=== PATIENT | female | born 1965 | race Caucasian/White ===

== ENCOUNTER → 2016-05-29 | Outpatient (CLI) | payer BC ==
--- NOTE | 2016-05-30 01:27 | MR ---
EXAMINATION TYPE: MR foot LT wo/w con DATE OF EXAM: 05/29/2016 8:44 PM COMPARISON: NONE HISTORY: Ganglion cyst Peroneal Tendonitis CONTRAST: Standard multiplanar, multisequence MRI departmental protocol utilizing 12 mL intravenous MultiHance gadolinium contrast. FINDINGS: There is subcutaneous edema over the lateral malleolus as well as lateral to the calcaneus. There is a mild ankle joint effusion. Contrast images show soft tissue enhancement on the lateral as pect of the hindfoot. I see no fracture line. Joint spaces are normal. Ankle mortise is anatomic. I d o not see any significant fluid around the peroneal tendons. Peroneal tendons appear intact. The medi al flexor tendons of the ankle appear intact. Achilles tendon appears normal. Plantar fascia appears normal. IMPRESSION: There is a small ankle joint effusion with fluid seen posterior to the dome of the talus. Subcutaneou s edema over the lateral hindfoot. I do not see a ganglion cyst. No tendon retraction seen. I do not see any significant fluid around the peroneal tendons to suggest tendinitis.
== END | disposition home or self-care (01) ==
LOC: RADMRIMAIN 19:14
PROVIDERS: ATTEND Podiatrist Foot & Ankle Surgery
DX: M25.472 Effusion, left ankle (principal)
CPT/HCPCS: 73720; A9577

== ENCOUNTER 2017-04-27 15:29 | Emergency (ER) | payer BC ==
[2017-04-27] MEDS ORDERED: MORPHINE SULFATE 5 MG/ML SYRINGE IV ONE (16:47)
[2017-04-27] MEDS ORDERED: SODIUM CHLORIDE 0.9% 1,000 ML IV ONE (16:47)
[2017-04-27] MEDS ORDERED: KETOROLAC 30 MG/ML 1 ML VIAL IVP STA (16:47)
[2017-04-27] MEDS ORDERED: ONDANSETRON 4 MG/2 ML VIAL IVP STA (16:49)
--- NOTE | 2017-04-27 16:51 | ED ---
Back Pain HPI - General Chief Complaint: Back Pain/Injury Stated Complaint: Fall Time Seen by Provider: 04/27/17 16:34 Source: patient Limitations: no limitations - History of Present Illness Initial Comments: Patient is a 51-year-old female who presents with a chief complaint of right- sided back and flank pain. The patient states that she fell down wooden stairs 1 week ago and at that time started experiencing pain in her back. She tried to use Motrin, Tylenol, and Craig at that time to alleviate the pain however over the week her pain has not gotten better. The patient states that her pain is exacerbated by twisting, and moving. Alleviating factors are rest. The patient describes her pain as "inflammation pain". - Related Data Previous Rx's Medication Instructions Recorded HYDROcodone/APAP 5-325MG [Craig 1 tab PO Q6HR PRN #20 tab 04/27/17 5-325] Ibuprofen [Motrin] 800 mg PO Q6HR PRN #20 tab 04/27/17 Methocarbamol [Robaxin-750] 750 mg PO TID #20 tablet 04/27/17 Sennosides/Docusate Sodium [Colace 1 each PO DAILY #20 tablet 04/27/17 2-in-1 Tablet] Allergies Allergy/AdvReac Type Severity Reaction Status Date / Time codeine AdvReac Nausea Verified 04/27/17 16:51 Review of Systems ROS Statement: Those systems with pertinent positive or pertinent negative responses have been documented in the HPI. ROS Other: All systems not noted in ROS Statement are negative. Musculoskeletal: Reports: back pain Past Medical History Past Medical History: No Reported History History of Any Multi-Drug Resistant Organisms: None Reported Past Surgical History: Hysterectomy Past Psychological History: No Psychological Hx Reported Smoking Status: Current every day smoker Past Alcohol Use History: Occasional Past Drug Use History: None Reported General Exam Limitations: no limitations General appearance: alert, in no apparent distress Head exam: Present: atraumatic, normocephalic Eye exam: Present: normal appearance ENT exam: Present: mucous membranes moist Neck exam: Absent: tenderness Respiratory exam: Present: normal lung sounds bilaterally Cardiovascular Exam: Present: regular rate, normal rhythm GI/Abdominal exam: Present: soft. Absent: distended, tenderness Back exam: Present: tenderness (Patient is exquisitely tender to palpation on the right flank just to the right of the spine), CVA tenderness (R) Neurological exam: Present: alert, oriented X3, CN II-XII intact, normal gait Psychiatric exam: Present: normal affect, normal mood Skin exam: Present: warm, dry, intact Course Vital Signs 04/27/17 15:44 Temperature 98.5 F Pulse Rate 74 Respiratory 18 Rate Blood Pressure 145/70 O2 Sat by Pulse 98 Oximetry Medical Decision Making - Medical Decision Making The results of the chief complaint of back pain for one week after a fall downstairs. At this time, we will send basic blood work, and get rib x-rays. If at the end of the workup, there is no answer for why the patient is having pain, we will send the patient for a CAT scan. 6:28 PM Lab evaluation of this patient is unremarkable. There is no evidence of infection, renal impairment, or electrolyte disturbance. Urinalysis does not show any evidence of infection or hematuria that would suggest renal injury. X- ray of the ribs and chest do not show any acute displaced fractures. There is no intrathoracic acute process. I discussed the benign nature of the results with the patient. At this time commissure decision making was used to decide to forego further imaging. I discussed supportive management with the patient and her . At this time, they are agreeable. I will prescribe Robaxin, Craig, Motrin, and a stool softener. Patient was instructed to follow-up with her primary care doctor in 2-3 days. She was further instructed to return to the emergency department if her symptoms worsen or change in any way. - Lab Data Result diagrams: 04/27/17 16:55 04/27/17 16:55 Lab Results 04/27/17 04/27/17 04/27/17 Range/Units 16:55 16:55 16:55 WBC 6.7 (3.8-10.6) k/uL RBC 4.41 (3.80-5.40) m/uL Hgb 13.7 (11.4-16.0) gm/dL Hct 42.3 (34.0-46.0) % MCV 96.0 (80.0-100.0) fL MCH 31.1 (25.0-35.0) pg MCHC 32.4 (31.0-37.0) g/dL RDW 13.6 (11.5-15.5) % Plt Count 231 (150-450) k/uL Neutrophils % (Manual) 48 % Lymphocytes % (Manual) 41 % Monocytes % (Manual) 10 % Eosinophils % (Manual) 1 % Neutrophils # (Manual) 3.22 (1.3-7.7) k/uL Lymphocytes # (Manual) 2.75 (1.0-4.8) k/uL Monocytes # (Manual) 0.67 (0-1.0) k/uL Eosinophils # (Manual) 0.07 (0-0.7) k/uL Nucleated RBCs 0 (0-0) /100 WBC Manual Slide Review Performed RBC Morphology Normal Sodium 142 (137-145) mmol/L Potassium 4.4 (3.5-5.1) mmol/L Chloride 104 (98-107) mmol/L Carbon Dioxide 28 (22-30) mmol/L Anion Gap 10 mmol/L BUN 13 (7-17) mg/dL Creatinine 0.60 (0.52-1.04) mg/dL Est GFR (MDRD) Af Amer >60 (>60 ml/min/1.73 sqM) Est GFR (MDRD) Non-Af >60 (>60 ml/min/1.73 sqM) Glucose 85 (74-99) mg/dL Calcium 9.9 (8.4-10.2) mg/dL Total Bilirubin 0.5 (0.2-1.3) mg/dL AST 31 (14-36) U/L ALT 32 (9-52) U/L Alkaline Phosphatase 81 (38-126) U/L Total Protein 7.6 (6.3-8.2) g/dL Albumin 4.7 (3.5-5.0) g/dL Lipase 43 (23-300) U/L Urine Color Colorless Urine Appearance Clear (Clear) Urine pH 5.5 (5.0-8.0) Ur Specific [place] 1.003 (1.001-1.035) Urine Protein Negative (Negative) Urine Glucose (UA) Negative (Negative) Urine Ketones 1+ H (Negative) Urine Blood Negative (Negative) Urine Nitrite Negative (Negative) Urine Bilirubin Negative (Negative) Urine Urobilinogen <2.0 (<2.0) mg/dL Ur Leukocyte Esterase Negative (Negative) Disposition Clinical Impression: Mechanical back pain, Thoracic back pain Disposition: HOME SELF-CARE Condition: Good Instructions: Back Pain (ED) Prescriptions: HYDROcodone/APAP 5-325MG [Craig 5-325] 1 tab PO Q6HR PRN #20 tab PRN Reason: Severe Pain Ibuprofen [Motrin] 800 mg PO Q6HR PRN #20 tab PRN Reason: pain Methocarbamol [Robaxin-750] 750 mg PO TID #20 tablet Sennosides/Docusate Sodium [Colace 2-in-1 Tablet] 1 each PO DAILY #20 tablet Referrals: None,Stated [Primary Care Provider] - 1-2 days
[2017-04-27 17:04] LABS: Appearance,Urine Clear (Clear); Bilirubin,Urine Negative (Negative); Blood,Urine Negative (Negative); Color,Urine Colorless; Glucose,Urine (UA) Negative (Negative); HCT 42.3 % (34.0-46.0); HGB 13.7 gm/dL (11.4-16.0); Ketones,Urine 1+ (Negative); Leukocyte Esterase,Urine Negative (Negative); MCH 31.1 pg (25.0-35.0); MCHC 32.4 g/dL (31.0-37.0); Nitrite,Urine Negative (Negative); PH, Urine 5.5 (5.0-8.0); Platelet Count 231 k/uL (150-450); Protein,Urine Negative (Negative); RBC 4.41 m/uL (3.80-5.40); RDW 13.6 % (11.5-15.5); Specific Gravity,Urine 1.003 (1.001-1.035); Urobilinogen,Urine <2.0 mg/dL (<2.0); WBC 6.7 k/uL (3.8-10.6)
[2017-04-27 17:17] LABS: ALT 32 U/L (9-52); AST 31 U/L (14-36); Albumin 4.7 g/dL (3.5-5.0); Alkaline Phosphatase 81 U/L (38-126); Anion Gap 10 mmol/L; Blood Urea Nitrogen 13 mg/dL (7-17); Calcium 9.9 mg/dL (8.4-10.2); Carbon Dioxide 28 mmol/L (22-30); Chloride 104 mmol/L (98-107); Glucose 85 mg/dL (74-99); Lipase 43 U/L (23-300); Potassium 4.4 mmol/L (3.5-5.1); Sodium 142 mmol/L (137-145); Total Bilirubin 0.5 mg/dL (0.2-1.3); Total Protein 7.6 g/dL (6.3-8.2)
[2017-04-27 17:26] LABS: Eosinophils # (M) 0.07 k/uL (0-0.7); Lymphocytes # (M) 2.75 k/uL (1.0-4.8); Monocytes # (M) 0.67 k/uL (0-1.0); Neutrophils # (M) 3.22 k/uL (1.3-7.7); Neutrophils % (M) 48 %; Nucleated Red Blood Cells 0 /100 WBC (0-0); Total Cells Counted 100
--- NOTE | 2017-04-27 18:08 | XR ---
EXAMINATION TYPE: XR ribs bilat w pa chest xray DATE OF EXAM: 04/27/2017 CLINICAL HISTORY: Chest and bilateral rib pain after fall injury. TECHNIQUE: Single frontal view of the chest is obtained. A frontal and oblique images of the bilatera l ribs are acquired. COMPARISON: None FINDINGS: There is no focal air space opacity, pleural effusion, or pneumothorax seen. The cardiac silhouette size is within normal limits. The osseous structures are intact. Dedicated images of the bilateral ribs show no acute displaced fracture. Overlying soft tissue is unr emarkable. IMPRESSION: 1. No acute cardiopulmonary process. 2. No acute displaced rib fractures are evident bilaterally
[2017-04-27 18:33] VITALS: BP 135/62; PULSE 62; RESP 17; TEMP 98.7
== END 2017-04-27 18:43 | disposition home or self-care (01) ==
LOC: EC 15:29
DX: M54.6 Pain in thoracic spine (principal); R10.9 Unspecified abdominal pain; F17.200 Nicotine dependence, unspecified, uncomplicated; Z88.5 Allergy status to narcotic agent; W10.9XXA Fall (on) (from) unspecified stairs and steps, initial encounter
CPT/HCPCS: 36415; 80053; 83690; 85025; 81003; 71111; 99283; 96374; 96375 ×2; 96361; J2405; J1885; J2274

== ENCOUNTER → 2022-05-09 | Outpatient (CLI) | payer BC ==
--- NOTE | 2022-05-10 09:31 | MM ---
Reason for Exam: Screening (asymptomatic). Baseline mammogram. Patient History: Menarche at age 10. First Full-Term at age 18. Left ovary removed at age 31. Right ovary removed at age 31. Hysterectomy at age 30. Postmenopausal. Risk Values: Shalini 5 year model risk: 1.2%. NCI Lifetime model risk: 6.9%. Prior Study Comparison: Patient's first Mammogram. No prior studies available for comparison. Tissue Density: The breast tissue is heterogeneously dense. This may lower the sensitivity of mammography. Findings: Analyzed By CAD. There is no suspicious group of microcalcifications or new suspicious mass in either breast. Overall Assessment: Negative, BI-RAD 1 Management: Screening Mammogram of both breasts in 1 year. A clinical breast exam by your physician is recommended on an annual basis and results should be correlated with mammographic findings. [facility] will attempt to contact patient to return for supplemental views and ultrasound if indicated. Electronically signed and approved by: Jorge Jefferson DO
== END | disposition home or self-care (01) ==
LOC: RADMAMWWP 10:38
PROVIDERS: ATTEND Family Medicine
DX: Z12.31 Encounter for screening mammogram for malignant neoplasm of breast (principal); Z78.0 Asymptomatic menopausal state
CPT/HCPCS: 77063; 77067

== ENCOUNTER → 2023-02-28 | Outpatient (CLI) | payer BC ==
[2023-02-28 10:41] VITALS: RESP 16
[2023-02-28 11:34] VITALS: BP 118/78; PULSE 75; TEMP 98.1
--- NOTE | 2023-02-28 15:03 | P.PAINPG ---
PQRS Measure Charge Sheet Comment: HISTORY OF PRESENT ILLNESS: A 57 yr old female as a referral from Dr Avalos presents today w severe and chronic lumbosacral pain x 2-3 yrs secondary to DDD, spondylosis and facet arthropathy without myelopathy for evaluation. Pain stated when pt fell down a flight of stairs. Pt states pain level is provoked at 6/10 in intensity, constant, localized in the lower lumbar spine where it meets the tailbone, predominantly axial, sharp/ stabbing in character without shooting pain. Pain is provoked by sitting for periods of 30 min or more. Pain is alleviated by heat, ice, PT x 6 wks in Oct-Nov 2022, laying flat surface w hips rotated, reclining and rest. Oswestry axial pain score at 27. PMH: OA PSH: Hysterectomy SH: Daily tobacco use, Occasional ETOH use, No illicit drug use FH: Non contributory All: See list Meds: See list REVIEW OF ORGAN SYSTEMS: CONSTITUTIONAL: No fevers or chills. No recent weight loss. NEUROLOGICAL: + numbness and tingling along the distal extremities. No seizure disorders or headaches. MUSCULOSKELETAL: + pain PSYCHIATRIC: Denies current depression or suicidal thoughts. Physical Examinations : Constitutional : Cooperative , not in acute distress . Neurologic : Cranial nerve II to XII intact. No focal neurological deficits. Psychiatric : alert & oriented x 3. Matching mood & appropriate affect. Judgment & insight intact. Musculoskeletal : Cervical Spine Motor strength in the deltoid and biceps: Normal right side. Normal Left side Motor strength biceps and the wrist extensors: Normal right side . Normal left side Motor strength in the triceps muscle: Normal right side. Normal left side Deep tendon reflexes: Normal at the biceps. Normal at Brachioradialis. Normal at triceps Vertebral body tenderness to deep palpation over Cervical facet loading test: positive bilaterally Spurling test: positive bilaterally Neck distraction test: positive bilaterally Gerald sign: positive bilaterally Lumbar spine Motor strength lower extremities ,thigh and legs 5/5 Right side , 5/5 Left side Deep tendon reflexes : Normal Knee J erk. Normal Ankle Jerk Vertebral body tenderness over Hoyos Test positive Lumbar facet Loading Test: positive Right / positive Left Range of motion of the lumbar spine Flexion 30 degrees, extension 10 degrees Straight Leg Raise test: Left/ Right positive at degree Bety test: positive right / positive left. Severe tenderness over the Sacroiliac joint on the Right / Left sides Gaenslen test: positive bilaterally Seated flexion test: positive bilaterally. Sacral spine : Severe tenderness over the Sacroiliac joint: right side / left side Range of motion: Flexion of the lumbar spine <60 degrees Range of motion: Extension of the lumbar spine <20 degrees Gaenslen's Test positive L >R Bety test: positive right side < left side Thigh Thrust Test Sacral Thrust Test positive L & R Imaging: MRI noncontrast of the lumbar spine from 07/13/22 reviewed Assessment/ Plan : Lumbar DDD, Sacroiliitis Recommendation of BL SI Injections. May need a series of injections for optimal pain relief. Risks, benefits of procedure discussed and patient verbalized understanding. Admits to anti- coagulant use or medical history of diabetes. Protocol for discontinuation/ continuation of medications gemma procedure disc ussed. Minimal anesthesia provided, if clinically indicated, consisting of Versed and Fentanyl. All questions answered. I have spent greater than 30 minutes on patient care today. Dr Cid was avai lable by phone for the evaluation of this patient. The time was used to review the medical records including relevant urine studies and Prescription history (MAPs), review of the available imaging, evaluation and examination of the patient, coordination of care with the medical staff and if applicable referring physicians, as well as creation of the medical record - Pain Location None Non-Pharmacological Interventions: Exercise, Heat, Ice, Position/Reposition, Stretching Pharmacological Interventions: Block, Epidural PQRS Narrative: Smoking Status Current every day smoker Home Medications: Ambulatory Orders HYDROcodone/APAP 5-325MG [[place] 5-325] 1 tab PO Q6HR PRN #20 tab 04/27/17 Ibuprofen [Motrin] 800 mg PO Q6HR PRN #20 tab 04/27/17 Sennosides/Docusate Sodium [Colace 2-in-1 Tablet] 1 each PO DAILY #20 tablet 04/27/17 methocarbamoL [Robaxin-750] 750 mg PO TID #20 tablet 04/27/17 Controlled Substance Measures - Controlled Substance Measures Is patient prescribed a controlled substance at discharge?: No
== END ==
LOC: PNWHC3 09:25
PROVIDERS: ATTEND Specialist
DX: M51.36 Other intervertebral disc degeneration, lumbar region (principal); M46.1 Sacroiliitis, not elsewhere classified; M19.90 Unspecified osteoarthritis, unspecified site; F17.200 Nicotine dependence, unspecified, uncomplicated; Z88.5 Allergy status to narcotic agent
CPT/HCPCS: 99211

== ENCOUNTER 2023-03-19 07:13 | Day surgery (SDC) | payer BC ==
[2023-03-12 14:45] VITALS: BMI 20.7
[~2023-03-19 07:13] MED LIST: LACTATED RINGERS 1,000 ML IV SCH
[2023-03-19 08:00] VITALS: TEMP 97.8
[2023-03-19] MEDS ORDERED: ROPIVACAINE 5MG/ML 20ML VIAL ONE (08:56)
[2023-03-19] MEDS ORDERED: methylPREDNISolone ACETATE 40 MG/ML 1 ML VIAL ONE (08:56)
--- NOTE | 2023-03-19 09:21 | P.PCN ---
Description of Procedure: Preprocedure diagnosis. Sacroiliac joint arthropathy. Postprocedure diagnosis. As above. Procedure done. Bilateral sacroiliac joint injection with local anesthetics and steroid under fluoroscopic guidance. Anesthesia. Local anesthetic infiltration. Blood loss. Minimal. Indication. Discussed the procedure, alternatives, complications which may include infection,bleeding, nerve damage, aggravation of pain which could be permanent. Patient understands and questions were answered. Procedure note. After getting consent patient in OR in prone position. Back prepped with chlorhexidine and draped in sterile manner. After injecting 10 mL of 1% lidocaine subcutaneously, a 22-gauge spinal needle was introduced under tunnel vision of the fluoroscope in the lower and posterior one third of right sacroiliac joint. After needle position confirmation by AP and crosstable lateral view, . After repeat negative aspiration, 2 mL solution was injected which consists off one milliliter of 0.5% Ropivacaine mixed with 1 mL of 40 mg Depo-Medrol. In exactly same way left sacroiliac joint was injected with same amount of solution. After the procedure needles were taken out. Bandage applied. Disposition. Patient tolerated the procedure well. No complication. Patient was discharged home in stable condition.
[2023-03-19 09:33] VITALS: RESP 18
--- NOTE | 2023-03-19 09:46 | FL ---
Intraoperative/procedural fluoroscopic services were provided. Total fluoroscopy time is 30 seconds w ith a total of 5 submitted images to PACS. Please see the operative/procedural note for further detai ls. DAP: [id number] mGym2
[2023-03-19 10:03] VITALS: BP 139/76; PULSE 55
== END 2023-03-19 09:56 | disposition home or self-care (01) ==
LOC: ORPAIN 07:13
PROVIDERS: ATTEND Pain Medicine Interventional Pain Medicine
DX: M46.1 Sacroiliitis, not elsewhere classified (principal)
CPT/HCPCS: 27096; J1030; J2795

== ENCOUNTER → 2023-04-10 | Outpatient (CLI) | payer BC ==
[2023-04-10 10:18] VITALS: BP 124/87; PULSE 84; RESP 16; TEMP 98.3
--- NOTE | 2023-04-10 14:09 | P.PAINPG ---
PQRS Measure Charge Sheet Comment: HISTORY OF PRESENT ILLNESS: A 57 yr old female presents today w severe and chronic lumbosacral pain x 2-3 yrs secondary to DDD, spondylosis and facet arthropathy without myelopathy for evaluation s/p BL SI Injections #1. Pt states she experienced 50 % pain relief x 3 wks s/p procedure. Pt states pain level is provoked at 7/10 in intensity, constant, localized in the lower lumbar spine where it meets the tailbone, predominantly axial, stabbing in character w occasional shooting pain to buttocks and down back of thighs. Pain is provoked by sitting for periods of 30 min or more. Pain is alleviated by heat, ice, PT x 6 wks in Oct- Nov 2022, laying flat surface w hips rotated, reclining and rest. Oswestry axial pain score at 27. Interventional procedures include BL SI Injection x1 Medications include REVIEW OF ORGAN SYSTEMS: CONSTITUTIONAL: No fevers or chills. No recent weight loss. NEUROLOGICAL: + numbness and tingling along the distal extremities. No seizure disorders or headaches. MUSCULOSKELETAL: + pain PSYCHIATRIC: Denies current depression or suicidal thoughts. Physical Examinations : Constitutional : Cooperative , not in acute distress . Neurologic : Cranial nerve II to XII intact. No focal neurological deficits. Psychiatric : alert & oriented x 3. Matching mood & appropriate affect. Judgment & insight intact. Musculoskeletal : Cervical Spine Motor strength in the deltoid and biceps: Normal right side. Normal Left side Motor strength biceps and the wrist extensors: Normal right side . Normal left side Motor strength in the triceps muscle: Normal right side. Normal left side Deep tendon reflexes: Normal at the biceps. Normal at Brachioradialis. Normal at triceps Vertebral body tenderness to deep palpation over Cervical facet loading test: positive bilaterally Spurling test: positive bilaterally Neck distraction test: positive bilaterally Gerald sign: positive bilaterally Lumbar spine Motor strength lower extremities ,thigh and legs 5/5 Right side , 5/5 Left side Deep tendon reflexes : Normal Knee Jerk. Normal Ankle Jerk Vertebral body tenderness over L5 Hoyos Test positive Lumbar facet Loading Test: positive Right / positive Left Range of motion of the lumbar spine Flexion 30 degrees, extension 10 degrees Straight Leg Raise test: Left/ Right positive at 35 degrees Bety test: positive right / positive left. Severe tenderness over the Sacroiliac joint on the Right / Left sides Gaenslen test: positive bilaterally Seated flexion test: positive bilaterally. Sacral spine : Severe tenderness over the Sacroiliac joint: right side / left side Range of motion: Flexion of the lumbar spine <60 degrees Range of motion: Extension of the lumbar spine <20 degrees Gaenslen's Test positive L >R Bety test: positive right side < left side Thigh Thrust Test Sacral Thrust Test positive L & R Imaging: MRI noncontrast of the lumbar spine from 07/13/22 reviewed Assessment/ Plan : Lumbar DDD, Sacroiliitis Recommendation of BL TFESI L5-S1 #1. May need a series of injections for optimal pain relief. Risks, benefits of procedure discussed and patient verbalized understanding. Admits to anti- coagulant use or medical history of diabetes. Protocol for discontinuation/ continuation of medications gemma procedure discussed. Minimal anesthesia provided, if clinically indicated, consisting of Versed and Fentanyl. All questions answered. I have spent greater than 30 minutes on patient care today. Dr Cid was available by phone for the evaluation of this patient. The time was used to review the medical records including relevant urine studies and Prescription history (MAPs), review of the available imaging, evaluation and examination of the patient, coordination of care with the medical staff and if applicable referring physicians, as well as creation of the medical record PQRS Narrative: Smoking Status Current every day smoker Home Medications: Ambulatory Orders Calcium Carbonate [Calcium] 1,200 mg PO DAILY 03/12/23 Ibuprofen [Motrin Ib] 400 mg PO DIRECTED PRN 03/12/23 Valium (Unknown Dose) 1 dose PO DIRECTED PRN 03/12/23 Vitamin K-2 (?) 1 dose PO DAILY 03/12/23 Lidocaine 4% Patch 1 patch TRANSDERM QAM 30 Days #30 patch 04/10/23 diazePAM [Valium] 5 mg PO DAILY PRN 1 Days #2 tab 04/10/23 Controlled Substance Measures - Controlled Substance Measures Is patient prescribed a controlled substance at discharge?: Yes When asked, does pt state using other controlled substances?: No If prescribed controlled substance>3 days was MAPS reviewed?: Prescribed <3 Days
== END ==
LOC: PNWHC3 08:55
PROVIDERS: ATTEND Specialist
DX: M51.36 Other intervertebral disc degeneration, lumbar region (principal); M46.1 Sacroiliitis, not elsewhere classified; F17.200 Nicotine dependence, unspecified, uncomplicated; Z88.5 Allergy status to narcotic agent; Z91.048 Other nonmedicinal substance allergy status
CPT/HCPCS: 99211

== ENCOUNTER 2023-04-23 10:52 | Day surgery (SDC) | payer BC ==
[2023-04-23 11:47] VITALS: TEMP 97.3
[2023-04-23] MEDS ORDERED: ROPIVACAINE 5MG/ML 20ML VIAL ONE (12:31)
[2023-04-23] MEDS ORDERED: DEXAMETHASONE SOD PHOSPHATE 10 MG/ML 1 ML VIAL ONE (12:31)
[2023-04-23] MEDS ORDERED: IOPAMIDOL M200 10 ML VIAL ONE (12:31)
[2023-04-23] MEDS ORDERED: LACTATED RINGERS 1,000 ML IV ONE (13:02)
[2023-04-23 13:36] VITALS: BP 124/77; PULSE 59; RESP 16
--- NOTE | 2023-04-23 13:46 | P.PCN ---
Description of Procedure: PREOPERATIVE DIAGNOSIS: 1-Lumbar radiculopathy . 2-lumbar degenerative disc disease. 3-lumbar spondylosis with lumbar facet arthropathy without myelopathy POSTOPERATIVE DIAGNOSIS: 1-lumbar radiculopathy. 2-lumbar degenerative disc disease. 3-lumbar spondylosis with facet arthropathy without myelopathy PROCEDURE 1. Transforaminal epidural steroid injection under fluoroscopic guidance at BILATERAL L5-S1 level. (Fluoroscopy images stored on file in the radiology Department ) 2. Lumbar epidurogram . ANESTHESIA: Local with 1% lidocaine 5 ml. subcutaneously. Continuous pulse ox, EKG, blood pressure and verbal communication was maintained with the patient. EBL: Minimal PROCEDURE INDICATION: The patient with low back pain and radiculopathy symptoms unresponsive to conservative treatment. The patient was seen and identified in the preoperative area. Risks, benefits, complications, and alternatives were discussed with the patient. The patient agreed to proceed with the procedure and signed the consent. IV was started, and vital signs were stable. PROCEDURE DESCRIPTION / TECHNIQUE: After getting consent, patient was taken to the OR and time out was completed. The patient was placed in the prone position on procedure table and a pillow was placed under the abdomen to reduce lumbar lordosis. The lumbosacral area was prepped and draped in the usual sterile fashion. Critical pause was taken. After injecting 5 mL of plain 1% lidocaine subcutaneously, under oblique view of the fluoroscope, a 22-gauge spinal needle was introduced under the tunnel view of the fluoroscope on the RIGHT side and the needle was advanced so that the tip of the needle was at the posterior inferior quadrant of the intervertebral foramen at the lateral view of the fluoroscope and in the lateral third of the facet column in the AP view of the fluoroscope. Negative CSF, negative blood, negative paresthesia. After needle position confirmation by AP and cross table lateral view, 3 mL of Isovue-M 200 contrast was injected under continuous fluoroscope. No contrast was noted in the intrathecal or intravascular space. The epidurogram was noted. Again after repeated negative aspiration 2.5 mL solution was injected which consists 1.5 mL of normal saline mixed with 1 mL of 15 mg dexamethasone. Needle was removed . Same procedure was repeated at the LEFT side at same level , using contrast under continuous fluoroscopy and using same amount of dexamethasone. At the end of the procedure, skin was cleansed, and bandages were applied. DISPOSITION / PLANS: No complication. The patient tolerated the procedure well. The patient was placed in a supine position and transferred to the recovery area in a stable condition for observation. There was no evidence of lower extremity motor or sensory deficit after the procedure. Patient was discharged from the recovery room after meeting discharge criteria. Home discharge instructions were given to the patient by the staff. The patient was reexamined prior to discharge.
--- NOTE | 2023-04-23 14:31 | FL ---
EXAMINATION TYPE: FL guided pain mgmt statistic Intraoperative/procedural fluoroscopic services were provided. Total fluoroscopy time is 38.9 seconds with a total of 6 submitted images to PACS. Please s ee the operative/procedural note for further details. DAP: [id number] mGym2
== END 2023-04-23 13:32 | disposition home or self-care (01) ==
LOC: ORPAIN 10:52
PROVIDERS: ATTEND Pain Medicine Interventional Pain Medicine
DX: M51.16 Intervertebral disc disorders with radiculopathy, lumbar region (principal); M47.26 Other spondylosis with radiculopathy, lumbar region; Z90.710 Acquired absence of both cervix and uterus; Z88.5 Allergy status to narcotic agent
CPT/HCPCS: 64483; J1100; Q9966; J2795

== ENCOUNTER 2023-10-30 10:35 | Day surgery (SDC) | payer BC ==
[2023-10-30 11:00] VITALS: TEMP 97.8
[2023-10-30] MEDS: LACTATED RINGERS 1,000 ML IV SCH (11:03)
[2023-10-30] MEDS: IV FLUID CONTINUATION 1,000 ML IV ONE (11:04)
[2023-10-30] MEDS ORDERED: PROPOFOL 10 MG/ML 20 ML VIAL IV ONE (11:36)
[2023-10-30] MEDS ORDERED: LIDOCAINE 1% INJ 10MG/ML (20 ML MDV) ONE (11:36)
--- NOTE | 2023-10-30 11:53 | P.PCN ---
Date of Procedure: 10/30/23 Procedure(s) Performed: BRIEF HISTORY: Patient is a 58-year-old pleasant white female scheduled for an elective colonoscopy as a part of screening for colon cancer/positive Cologuard. PROCEDURE PERFORMED: Colonoscopy with biopsy. PREOPERATIVE DIAGNOSIS: Screening for colon cancer/positive Cologuard. IV sedation per Anesthesia. PROCEDURE: After informed consent was obtained, the patient, was brought into the endoscopy unit. IV sedation was administered by Anesthesia under continuous monitoring. Digital rectal examination was normal. Initially the Olympus CF-160 flexible video colonoscope was then inserted in the rectum, gradually advanced into the cecum without any difficulty. Careful examination was performed as the scope was gradually being withdrawn. Ileocecal valve and the appendiceal orifice were visualized and appeared normal. Prep was excellent. Mucosa of the cecum, ascending colon, transverse colon, descending colon, sigmoid colon, and rectum appeared normal. There was a 3 mm rectal polyp noted in the proximal rectum that was removed by cold biopsy. Retroflexion was performed in the rectum and no lesions were seen. The patient tolerated the procedure well. IMPRESSION: 3 mm proximal rectal polyp status post cold biopsy Rest of the colon appeared normal RECOMMENDATIONS: Findings of this examination were discussed with the patient as well as her family. She was advised to follow-up with the biopsy results. Recommended repeat colonoscopy in 5 to 10 years based on the biopsy results.
[2023-10-30 12:22] VITALS: BP 109/55; PULSE 54; RESP 18
== END 2023-10-30 12:46 | disposition home or self-care (01) ==
LOC: ORWHC2ENDO 10:35
PROVIDERS: ATTEND Internal Medicine Gastroenterology
DX: K62.1 Rectal polyp (principal); E07.9 Disorder of thyroid, unspecified; Z88.5 Allergy status to narcotic agent; Z79.899 Other long term (current) drug therapy
CPT/HCPCS: 88305; 45380; J2001; J2704